=== PATIENT | female | born 1965 | race Asian ===

== ENCOUNTER 2021-03-20 08:02 | Day surgery (SDC) | payer OTHER ==
[~2021-03-20] VITALS: Ht 160 cm; Wt 55.3 kg
[2021-03-20] MEDS ORDERED: fentaNYL citrate 0.05 MG/ML VIAL ONE ×2 (09:37→11:24)
[2021-03-20] MEDS ORDERED: MIDAZOLAM 5 MG/5 ML VIAL ONE ×2 (09:38→11:24)
[2021-03-20] MEDS ORDERED: MIDAZOLAM 2 MG/2 ML VIAL IVP ONE (11:45)
== END 2021-03-20 12:19 | disposition home or self-care (01) ==
LOC: MDS 08:02 → MMU 08:10 → MDS 12:19
PROVIDERS: ATTEND Internal Medicine Gastroenterology
DX: R10.13 Epigastric pain (principal); R14.0 Abdominal distension (gaseous); Z79.899 Other long term (current) drug therapy
CPT/HCPCS: 36415; 43239; 86677; J2250; J3010